=== PATIENT | female | born 1995 | race Two or more races ===

== ENCOUNTER 2019-03-03 20:33 | Inpatient (IN) | payer BC ==
[~2019-03-03] VITALS: Ht 165.1 cm; Wt 78.1 kg
[2019-03-06 07:40] VITALS: BP 98/67
== END 2019-03-06 13:20 | disposition home or self-care (01) | DRG 807 ==
LOC: LDOP 20:33 → LDIP 22:07 → 2NW 03-04 17:15
PROVIDERS: ADMIT Obstetrics & Gynecology; ATTEND Obstetrics & Gynecology
PROC: 10E0XZZ Delivery of Products of Conception, External Approach (ICD-10-PCS; principal; 2019-03-04)
PROC: 10H07YZ Insertion of Other Device into Products of Conception, Via Natural or Artificial Opening (ICD-10-PCS; 2019-03-04)
PROC: 3E0R3BZ Introduction of Anesthetic Agent into Spinal Canal, Percutaneous Approach (ICD-10-PCS; 2019-03-04)
PROC: 00HU33Z Insertion of Infusion Device into Spinal Canal, Percutaneous Approach (ICD-10-PCS; 2019-03-04)
DX: O66.0 Obstructed labor due to shoulder dystocia (principal); O62.2 Other uterine inertia; Z37.0 Single live birth; Z3A.39 39 weeks gestation of pregnancy
CPT/HCPCS: 36415; J7121; 82803; 85025; 86850; 86900; G0378; J2590; J7120